=== PATIENT | female | born 1985 | race Caucasian/White ===

== ENCOUNTER 2022-07-25 13:00 | Outpatient (CLI) | payer BC, SELFPAY ==
[2022-07-25 23:26] LABS: Chlamydia DNA Amplified* NOT DETECTED (No Detected); GC DNA Amplified* NOT DETECTED (No Detected)
== END 2022-07-25 13:01 | disposition home or self-care (01) ==
LOC: LKVREF 13:00
PROVIDERS: PCP Family Medicine; Visit Provider Nurse Practitioner Family
DX: R10.2 Pelvic and perineal pain (principal); R30.0 Dysuria
CPT/HCPCS: 87491; 87591

== ENCOUNTER 2022-09-14 11:08 | Emergency (ER) | payer BC, SELFPAY ==
[2022-09-14 11:16] VITALS: BP 133/86; PULSE 100; RESP 18; TEMP 36.6; O2SAT 99; BMI 21.6
--- OUTSIDE RECORDS SUMMARY | 2022-09-14 12:26 | XMS_ITS | Continuity of Care Document ---
Author Name Unknown Organization [facility] Address [address] [address] [place] [address] Phone Care Team Providers Care Cart Pusher Name Role Phone Lupillo Montalvo MD Unavailable Unavailable Allergies, Adverse Reactions, Alerts Substance Reaction Status Criticality No Known Allergies Active No Inform ation Medications Medication Instructions Dosage Effective Dates (start - stop) Status Comments dicyclomine 20 mg tablet take 1 tablet by oral route up to 4 times per day as needed for cramping and/or urgency - Active omeprazole 40 mg capsule,delayed release take 1 capsule by oral route every day before a meal 40 MG - Active Control Pill ORAL TABLET Take one tablet by mouth daily - Active Imodium A-D 2 mg tablet take 1 tablet by oral route every day as needed 2 MG - Active hydroxyzine HCl 10 mg tablet take 5 mg at night - Active omeprazole 20 mg capsule,delayed release take 1 capsule by oral route 2 times every day 30 minutes to 1 hour before a meal 20 MG - Active Procedures Procedure Date Offic/outpt E&m New Mod-hi Advance Directives Directive Yes / No Effective Date File Name No Information Encounters Encounter Description Practice Location Reason(s) For Visit Diagnoses Date Provider Providers Copied on Encounter [facility], [address] [address], [place], [place], [id number], [place] tel:[phone] [facility] No Information Selvin Wesley. [address] [facility], [place], [place], [id number], [place]. tel:[phone] [facility], [address] [address], [place], [place], [id number], [place] tel:[phone] [facility] No Information Selvin Wesley. [address] [facility], [place], [place], [id number], [place]. tel:[phone] [facility], [address] [address], [place], [place], [id number], [place] tel:[phone] [facility] No Information Selvin Wesley. [address] [facility] [facility] [address], [place], [place], [id number], [place]. tel:[phone] Offic/outpt E&m New Mod-hi [facility], [address] [address], [place], [place], [id number], [place] tel:[phone] [facility] GI Symptoms or Concerns (chief complaint) Irritable bowel syndrome with both constipation and diarrhea Selvin Wesley. [address] [facility] [facility] [address], [place], [place], [id number], [place]. tel:[phone] Referring Provider: Bryon Sewell, [address] [place] [address], [place], [address]. tel:[phone] [facility], [address] [address], [place], [place], [id number], [place] tel:[phone] [facility] GI Symptoms or Concerns (chief complaint) No Information Tim Phelps. [address] [facility] [facility] [address], [place], [place], [id number], [place]. tel:[phone] Family History Family Member Type Diagnosis Age At Onset Problem (finding) Family history of Anxie ty Problem (finding) Family history of cancer of the esophagus Problem (finding) Family history of Acid reflux disease Immunizations Vaccine Date Status Comments Afluria Qd administered Note: [facility] bi-directional interface ; Source: Other Registry Afluria Qd administered Note: M [facility] bi-directional interface ; Source: Other Registry tetanus toxoid, reduced diphtheria toxoid, and acellular pertussis vaccine, adsorbed administered Note: [facility] b i-directional interface ; Source: Other Registry tetanus toxoid, reduced diphtheria toxoid, and acellular pertussis vaccine, adsorbed administered Note: [facility] b i-directional interface ; Source: Other Registry seasonal influenza, intrader mal, preservative free administered Note: [facility] bi-direct ional interface ; Source: Other Registry measles, mumps and rubella v irus vaccine administered Note: [facility] bi-direct ional interface ; Source: Other Registry measles, mumps and rubella v irus vaccine administered Note: [facility] bi-direct ional interface ; Source: Other Registry human papilloma virus vaccin e, quadrivalent administered Note: [facility] bi-direct ional interface ; Source: Other Registry human papilloma virus vaccin e, quadrivalent administered Note: [facility] bi-direct ional interface ; Source: Other Registry human papilloma virus vaccin e, quadrivalent administered Note: [facility] bi-direct ional interface ; Source: Other Registry Payers Payer name Insurance type Covered constitution party ID Authorsosaa shahid(s) [facility] [id number] Social History Type Description Quantity Date Captured Comments Sex Female Smoking Status No Information Chief Complaint And Reason For Visit No Information Reason For Referral Reason For Referral No Information Plan Of Treatment Date Type Action Status Referral Ordered: Colonoscopy Appointment date/timeframe: 06/17/2021 ordered History Of Present Illness Encounter Date Complaint History Of Prese nt Illness GI Symptoms or Concerns 35-year- old woman with chronic history of IBS type symptoms, often associated with anxiety and stress, intermittent tobacco use in the past, who presents at the request of Dr. Epperson for further testing and management of her chronic GI symptoms. She has had symptoms of irregular bowels, abdominal cramping, and nausea for several years, but reports that these have been worse in the past 2 years. She believes she has had some blood tests, stool tests, and some imaging in the past year at [facility], but does not have the results of these tests. As far as she knows all the tests have been unrevealing, except for suggestion of constipation on imaging. She is fairly confident that blood tests were negative for celiac disease. She reports she had an abdominal x-ray that showed large amounts of stool, did a bowel cleanse, and within about a week later had some sort of cross-sectional imaging (? MRI), which again showed constipation, but no other pathology. Initially GI Symptoms or Concerns Functional Status Date Functional Assessmen t No Information Instructions Date Instruction Additional Infor mation Constipation Bowel Cleanse Relat ed to Irritable bowel syndrome with both constipation and diarrhea High Fiber Diet Related to Irrit able bowel syndrome with both constipation and diarrhea Assessments Type Assessment Date No Information Patient Care Teams Name Effective Dates (start - stop) Status Members No Information
--- NOTE | 2022-09-14 12:47 | ED.GENADULT ---
HPI - General Adult General Date Seen: 09/14/22 Chief complaint: Unspecified Complaint, Adult Stated complaint: Vision weird, mixing up words, can't feel body Time Seen by Provider: 09/14/22 11:48 Source: patient Mode of arrival: ambulatory Limitations: no limitations History of Present Illness HPI narrative: Patient is a previously healthy 37-year-old female presents here with multiple complaints, her biggest complaint however is just fatigue, she reports that she is just so tired, that she can not get enough sleep. And just wants to sleep all the time, feels when she gets up and walks that her legs are dragging, she says she has also multiple other concerns like she feels numbness tingling in her hands and her feet bilaterally, she thought maybe this was her anxiety, she took some Atarax yesterday, but does not think this is goes this usually takes care of it. Just started a new job a few weeks ago and said this could be also part of the problem with the new stress she is under a lot of stress overall in her life. She denies any fevers chills or sweats, there is no nausea vomiting, she is very worried that she may have a stroke is there is strong family history of strokes in her family with multiple family members at age 30 having stroke this. She however denies any history of headaches, any weakness, specifically of or unilaterally in her extremities, denies any unilateral vision loss or vision she says feels cloudy, when she looks out. Denies use of drugs or alcohol, denies being , denies drinking excessive water, [id number] medications, or other issues. Onset (ago): day(s) Severity: moderate Treatments prior to arrival: none Related Data Home Medications Medication Instructions Recorded Confirmed famotidine 20 mg tablet (Acid 20 mg PO QDAY 04/26/22 07/25/22 [employer] (famotidine)) fexofenadine 180 mg tablet 180 mg PO Q24H 04/26/22 07/25/22 (Latricia Allergy) fluconazole 150 mg tablet 150 mg PO 07/25/22 07/25/22 sulfamethoxazole 800 1 tab PO BID 07/25/22 07/25/22 mg-trimethoprim 160 mg tablet valacyclovir 500 mg tablet 500 mg PO DAILY 07/25/22 07/25/22 Previous Rx's Medication Instructions Recorded albuterol sulfate 90 mcg/actuation 2 puff inhalation Q4-6H PRN 04/26/22 aerosol inhaler shortness of breath or wheezing #8.5 grams Allergies Allergy/AdvReac Type Severity Reaction Status Date / Time No Known Drug Allergies Allergy Verified 07/25/22 12:37 Review of Systems Const: Reports: fatigue, malaise and change in sleep pattern Eyes: Reports: blurry vision Neuro: Reports: numbness in extremities and weakness in extremities Psych: Reports: anxiety Endo: Reports: fatigue PFSH PFS Medical History Asthma exacerbation ?J45.901 - Unspecified asthma with (acute) exacerbation (ICD-10) Smoker ?F17.200 - Nicotine dependence, unspecified, uncomplicated (ICD-10) Wheeze ?R06.2 - Wheezing (ICD-10) Social History Smoking Status: Never smoker Do you use any of these nicotine containing products: None Second hand tobacco smoke exposure: No How often do you have a drink containing alcohol: monthly or less AUDIT-C Alcohol total score: 1 Non-prescribed substance use: denies use Exam Narrative: Exam Narrative: I find her resting in room 3, she is initially a little perturbed that she had to wait an hour to be seen. She is otherwise speaking to me normally, no slurring of her words, there is normal phonation, denies suicidal or homicidal ideation, she is seen with María the nurse. Her pupils are equal round reactive to light, there is no nystagmus, fundi appear normal, she tracks normally with no diplopia noted, cranial nerves 3-12 are normal, mouth opening is normal, there is no abnormality of her pharynx, there is no lymphadenopathy anterior posterior chains, absence of meningismus, TMs are normal, chest is good air entry bilaterally with no wheezing crackles noted, no signs respiratory distress, heart sounds no clicks murmurs or gallops her abdomen is soft and scaphoid there is no guarding, no organomegaly, she moves all extremities independently and well, tandem walking is normal in the room, there is no weakness in her upper lower extremities, she has symmetrical bilaterally both distally and proximally, she notes normal fine motor movements, she is right-hand dominant, finger-nose testing is normal. Const: Vital Signs, click to edit/add: Vital Signs - 24 hr 09/14/22 11:16 Temperature 97.8 F Pulse Rate [Right Pulse Oximeter] 100 Respiratory Rate 18 Blood Pressure [Ri ght Upper Arm] 133/86 Pulse Oximetry 99 Oxygen Delivery Me thod Room Air Documenting provider has reviewed patient's vital signs: yes Course Course Hospital Course: Discussed with the patient the there is no biochemical abnormality noted on her laboratory test, she does feel better after couple L of fluid here, I do think that it is probably related to exhaustion, stress, and mild dehydration. I think follow-up with primary care to discuss this is appropriate, but reassured her that I do not see any acute abnormality here today. Things change I have welcomed her to come back and be seen, she was very comfortable this. Vital Signs Vital signs: Initial Vital Signs Temperature 97.8 F 09/14/22 11:16 Temperature Source Temporal Artery Scan 09/14/22 11:16 Pulse Rate 100 09/14/22 11:16 Respiratory Rate 18 09/14/22 11:16 Blood Pressure 133/86 09/14/22 11:16 Blood Pressure Mean 101 09/14/22 11:16 Blood Pressure Position Sitting 09/14/22 11:16 Pulse Oximetry 99 09/14/22 11:16 Oxygen Delivery Method Room Air 09/14/22 11:16 Vital Signs Temperature 97.8 F 09/14/22 11:16 Pulse Rate 100 09/14/22 11:16 Respiratory Rate 18 09/14/22 11:16 Blood Pressure 133/86 09/14/22 11:16 Pulse Oximetry 99 09/14/22 11:16 Oxygen Delivery Method Room Air 09/14/22 11:16 Temperature 97.8 F 09/14/22 11:16 Pulse Rate 100 09/14/22 11:16 Respiratory Rate 18 09/14/22 11:16 Blood Pressure 133/86 09/14/22 11:16 Pulse Oximetry 99 09/14/22 11:16 Oxygen Delivery Method Room Air 09/14/22 11:16 Medical Decision Making MDM Narrative Medical decision making narrative: Life-threatening differential diagnosis considered include stroke, coronary artery disease, pneumonia, and heart failure. Other differential diagnosis include but are not limited to electrolyte imbalances, anemia, medication reactions, and urinary tract infection Medical Records Medical records reviewed: Yes I reviewed the patient's medical records Lab Data Lab results reviewed: Yes I reviewed the patient's lab results Labs: Lab Results 09/14/22 Range/Units 12:50 WBC 8.21 (4.50-11.00) K/uL RBC 4.47 (4.00-5.20) m/uL Hgb 14.1 (12.0-16.0) gm/dL Hct 42.2 (33.0-51.0) % MCV 94 (80-100) fL MCH 32 (26-34) pg MCHC 33 (32-36) gm/dL RDW Coeff of Isauro 12.7 (11.5-15.5) % Plt Count 280 (140-440) K/uL Neut % (Auto) 81.5 H (42.0-72.0) % Lymph % (Auto) 14.5 L (20-44) % Woodruff % (Auto) 3.2 (0.0-11.0) % Eos % (Auto) 0.2 (0.0-7.0) % Baso % (Auto) 0.4 (0.0-3.0) % Neut # (Auto) 6.70 (1.7-7.0) K/uL Lymph # (Auto) 1.20 (0.90-2.90) K/uL Woodruff # (Auto) 0.30 (0.00-0.90) K/UL Eos # (Auto) 0.02 (0.00-0.50) K/uL Baso # (Auto) 0.03 (0.00-0.30) K/uL Sodium 137 (135-149) mmol/L Potassium 3.9 (3.6-5.1) mmol/L Chloride 106 (96-114) mmol/L Carbon Dioxide 24 (20-32) mmol/L BUN 11 (5-24) mg/dL Creatinine 0.5 (0.5-1.5) mg/dL Estimated Creat Clear 124.21 Estimated GFR 125 ml/min Glucose 93 (60-115) mg/dL Calcium 9.1 (8.4-10.6) mg/dL Total Bilirubin 0.4 (0.1-1.5) mg/dL Direct Bilirubin 0.2 (0.0-0.5) mg/dL AST 27 (12-35) U/L ALT 24 (4-35) U/L Alkaline Phosphatase 34 L (40-150) U/L C-Reactive Protein < 0.5 L (0.5-1.0) mg/dL Total Protein 7.1 (6.0-8.3) g/dL Albumin 4.5 (3.3-5.0) g/dL TSH 0.552 (0.270-4.20) uIU/mL HCG, Qual Negative (Negative) Urine Color Yellow (Yellow) Urine Appearance Clear (Clear) Urine pH 6.5 (5.0-8.5) Ur Specific Talmage 1.015 (1.000-1.030) Urine Protein Negative (Negative) Urine Glucose (UA) Negative (Negative) Urine Ketones 2+ A (Negative) Urine Blood Negative (Negative) Urine Nitrite Negative (Negative) Urine Bilirubin Negative (Negative) Urine Urobilinogen 0.2 (0.2-1.0) Ur Leukocyte Esterase Negative (Negative) Urine RBC 0-2 (0-2) Urine WBC 0-2 (0-5) Ur Squamous Epith Cells Few (None-Few) Urine Bacteria Few A (None) Urine Opiates Screen Negative (Negative) Ur Oxycodone Screen Negative (Negative) Urine Methadone Screen Negative (Negative) Ur Propoxyphene Screen Negative (Negative) Ur Barbiturates Screen Negative (Negative) U Tricyclic Antidepress Negative (Negative) Ur Phencyclidine Scrn Negative (Negative) Ur Amphetamines Screen Negative (Negative) U Methamphetamines Scrn Negative (Negative) U Benzodiazepines Scrn Negative (Negative) Urine Cocaine Screen Negative (Negative) U Marijuana (THC) Screen Negative (Negative) Ur Drug Screen Comment See Note Ethyl Alcohol < 0.01 L (0.01-0.03) % SARS-CoV-2 (PCR) Negative SARS-CoV-2 (Negative) Influenza Type A (PCR) Negative PCR FLU A (Negative) Influenza Type B (PCR) Negative PCR FLU B (Negative) RSV (PCR) Negative PCR RSV (Negative) Discharge Plan Discharge Clinical Impression: Fatigue Patient Disposition: Home, Self-Care Condition: Improved Instructions: Fatigue (ED) Additional Instructions: Home rest and monitor, all your laboratory work was reassuring including a COVID swab, and TSH, I do not know what is going on, but I do know that rate now everything looks to be okay given her neurologic condition I really do not think this is stroke related. I do think that this could be exhaustion from stress, and follow-up with primary care to discuss with them would be appropriate. There is other things the primary care physician's due to check into this issue. Prescriptions: No Action famotidine [Acid [employer] (famotidine)] 20 mg tablet 20 mg PO QDAY fexofenadine [Latricia Allergy] 180 mg tablet 180 mg PO Q24H albuterol sulfate 90 mcg/actuation HFA aerosol inhaler 2 puff inhalation Q4-6H PRN (Reason: shortness of breath or wheezing) Qty: 8.5 0RF sulfamethoxazole-trimethoprim 800-160 mg tablet 1 tab PO BID Patient Comments: TAKE 1 TABLET BY MOUTH TWICE DAILY FOR 5 DAYS valacyclovir 500 mg tablet 500 mg PO DAILY fluconazole 150 mg tablet 150 mg PO Follow Up/Referrals: Lianet Holland MD [Primary Care Provider] - Stand Alone Forms: [employer] Info Instructions
[2022-09-14] MEDS: 0.9 % SODIUM CHLORIDE 1000 ml 1,000 ML IV ×2 (12:57→14:25)
[2022-09-14 13:03] LABS: Basophils Absolute Auto 0.03 K/uL (0.00-0.30); Basophils Percent Auto 0.4 % (0.0-3.0); Eosinophils Absolute Auto 0.02 K/uL (0.00-0.50); Eosinophils Percent Auto 0.2 % (0.0-7.0); Hematocrit 42.2 % (33.0-51.0); Hemoglobin* 14.1 gm/dL (12.0-16.0); Immature Granulocytes Abs Auto 0.02 K/uL (0.00-0.30); Immature Granulocytes Pct Auto 0.2 %; Lymphocytes Percent Auto 14.5 % (20-44); Mean Corpuscular HGB Conc 33 gm/dL (32-36); Mean Corpuscular Hemoglobin 32 pg (26-34); Mean Corpuscular Volume 94 fL (80-100); Monocytes Percent Auto 3.2 % (0.0-11.0); Neutrophils Percent Auto 81.5 % (42.0-72.0); Platelet Count* 280 K/uL (140-440); RDW Coefficient of Variation % 12.7 % (11.5-15.5); Red Blood Count 4.47 m/uL (4.00-5.20); White Blood Count* 8.21 K/uL (4.50-11.00)
[2022-09-14 13:05] LABS: Slide Review Reflex No
[2022-09-14 13:11] LABS: HCG Qualitative* Negative (Negative)
[2022-09-14 13:12] LABS: Amphetamine Screen Urine Negative (Negative); Barbiturate Screen Urine Negative (Negative); Benzodiazepines Screen Urine Negative (Negative); Cannabinoid Screen Urine Negative (Negative); Cocaine Screen Urine Negative (Negative); Methadone Screen Urine Negative (Negative); Methamphetamines Screen Urine Negative (Negative); Opiate Screen Urine Negative (Negative); Oxycodone Screen Urine Negative (Negative); Phencyclidine Screen Urine Negative (Negative); Tricyclic Antidepressant Urine Negative (Negative)
[2022-09-14 13:22] LABS: Albumin* 4.5 g/dL (3.3-5.0)
[2022-09-14 13:23] LABS: Appearance Urine Clear (Clear); Bilirubin Urine Negative (Negative); Blood Urine Negative (Negative); Chloride* 106 mmol/L (96-114); Color Urine Yellow (Yellow); Glucose Urine Negative (Negative); Ketones Urine 2+ (Negative); Leukocyte Esterase Urine Negative (Negative); Nitrite Urine Negative (Negative); Protein Urine Negative (Negative); Sodium* 137 mmol/L (135-149); Specific Gravity Urine 1.015 (1.000-1.030); Urobilinogen Urine 0.2 (0.2-1.0); pH Urine 6.5 (5.0-8.5)
[2022-09-14 13:24] LABS: Potassium* 3.9 mmol/L (3.6-5.1)
[2022-09-14 13:25] LABS: Aspartate Amino Transferase* 27 U/L (12-35); Bilirubin Direct* 0.2 mg/dL (0.0-0.5); Bilirubin Total* 0.4 mg/dL (0.1-1.5); Total Protein* 7.1 g/dL (6.0-8.3)
[2022-09-14 13:26] LABS: Alanine Aminotransferase* 24 U/L (4-35); Alkaline Phosphatase* 34 U/L (40-150); Creatinine* 0.5 mg/dL (0.5-1.5); Est. Creatinine Clearance* 124.21; Estimated Glomerular Filt Rate 125 ml/min
[2022-09-14 13:27] LABS: Blood Urea Nitrogen* 11 mg/dL (5-24); Calcium* 9.1 mg/dL (8.4-10.6); Carbon Dioxide* 24 mmol/L (20-32); Glucose* 93 mg/dL (60-115)
[2022-09-14 13:37] LABS: C Reactive Protein* < 0.5 mg/dL (0.5-1.0); Ethanol* < 0.01 % (0.01-0.03)
[2022-09-14 13:38] LABS: Bacteria Urine Few; RBC Urine 0-2 (0-2); Squamous Epithelial Cell Urine Few (None-Few); WBC Urine 0-2 (0-5)
[2022-09-14 13:45] LABS: PCR FLU A Negative PCR FLU A (Negative); PCR FLU B Negative PCR FLU B (Negative); PCR RSV Negative PCR RSV (Negative)
[2022-09-14 14:18] LABS: Thyroid Stimulating Hormone* 0.552 uIU/mL (0.270-4.20)
[2022-09-14 14:24] LABS: SARS PCR* Negative SARS-CoV-2 (Negative)
== END 2022-09-14 15:16 | disposition home or self-care (01) ==
PROVIDERS: Emergency Provider Family Medicine; PCP Family Medicine
DX: R53.83 Other fatigue (principal)
CPT/HCPCS: 36415; 80048; 80076; 80306; 81001; 82077; 84443; 84703; 85025; 86140; 87086; 87631; 93005; 96360; 99284; J7030